=== PATIENT | female | born 1970 | race Caucasian/White ===

== ENCOUNTER 2017-03-27 14:22 | Emergency (ER) | payer MEDICAID ==
[~2017-03-27] VITALS: Ht 165.1 cm; Wt 108.9 kg
--- NOTE | 2017-03-27 16:45 | NUR ---
PRESENTS TO ER STATES " EVERYTHING IS SPINNING ." " I FELT DIZZY" STARTED APPROX 0900. DENIES N/V. NO TRAUMA. NO MOTOR/NO NEURO DEFICITS. A/OX 4. BREATHING EVEN AND UNLABORED. NO SOB. VITALS STABLE. SAFETY AND COMFORT MEASURES IN PLACE. AWAITING MD ORDERS.
[2017-03-27] MEDS ORDERED: METOCLOPRAMIDE HCL 10 MG/2 ML VIAL IV ONE (17:30)
[2017-03-27] MEDS ORDERED: MECLIZINE HCL 12.5 MG TABLET PO ONE (17:30)
[2017-03-27] MEDS ORDERED: IV NS 0.9% 1,000 ML BAG IV ONE (17:30)
[2017-03-27] MEDS ORDERED: MECLIZINE HCL 25 MG TABLET ONE (17:35)
[2017-03-27] MEDS ORDERED: METOCLOPRAMIDE HCL 10 MG/2 ML VIAL ONE (17:35)
--- NOTE | 2017-03-27 17:43 | NUR ---
NEW IV STARTED ON LAC, 20 G. PATIENT MEDICATED PER MD ORDERS.
[2017-03-27 18:57] VITALS: BP 134/72
--- NOTE | 2017-03-27 18:58 | NUR ---
IV removed. Catheter intact and site benign. Pressure and 4x4 applied to site. No bleeding noted. Patient discharged to home in stable condition. Written and verbal after care instructions given. Patient verbalizes understanding of instruction.
== END 2017-03-27 18:58 | disposition home or self-care (01) ==
LOC: ER 14:31
DX: H81.10 Benign paroxysmal vertigo, unspecified ear (principal)
CPT/HCPCS: 96361; 96374; 99284; A4606; J2765; J7030; J8597; Z7610